=== PATIENT | male | born 1995 | race Caucasian/White ===

== ENCOUNTER 2018-11-06 14:50 | Emergency (ER) | payer MEDICAID, SELFPAY ==
[2018-11-06 14:58] VITALS: BP 159/76; PULSE 62; RESP 16; TEMP 37; O2SAT 96
--- NOTE | 2018-11-06 15:03 | DI.RAD_ITS ---
SYMPTOMS/DIAGNOSIS: RIGHT LATERAL FOOT PAIN S/P BLUNT TRAUMA RIGHT FOOT: No acute fracture or dislocation is identified.
--- NOTE | 2018-11-06 15:04 | W.ED.GENAD ---
Discharge Plan Disposition Patient Disposition: HOME Condition: Improving Discharge Details Chief Complaint: Orthopedic Clinical Impression: Contusion of foot, right Primary Care Provider: None,None ED Provider: Prabhu Valencia Home Meds and New Rx's Prescriptions: No Action No Known Home Meds RF: 0 Discharge Instructions Instructions: Contusion in Adults (ED), Foot Contusion (ED) Additional Instructions: Follow-up with regular doctor if not improving in 5-7 days time. You will like have increased bruising over the next 12-24 hours time. Apply ice to reduce discomfort. Elevate above the level of heart to reduce swelling. Wear a flat soled/hard soled shoe to reduce discomfort Stand Alone Forms: Work Release Medical Decision Making 23-year-old male dropped a large toolbox on his right foot prior to presentation. He had immediate onset of achy pain and swelling. He is otherwise in no acute distress. Referred for x-ray which does not reveal underlying bony injury. He certainly has contusion and likely will have increased bruising. I discussed this course of expected resolution with him. He is stable for discharge to home at this time. HPI General Mode of arrival: ambulatory. Date/Time Provider Initiated Documentation: 11/06/18 14:53. Limitations to Documentation: no limitations. Information obtained by: patient. History of Present Illness 23 year old M presents to the emergency department with the chief complaint of Right foot pain after dropping toolbox on it, described as moderate, Quality is described as aching, and is localized to the right and lower extremity. Patient reports no radiation. Patient started experiencing this minute(s) and it has been constant. No relieving factors improve symptom(s), No exacerbating factors reported . Patient notes no other symptoms.. Patient did receive the following treatments prior to arrival, none Related Data Home Medications Medication Instructions Recorded Confirmed Unknown [No Known Home Meds] 11/06/18 11/06/18 Allergies Allergy/AdvReac Type Severity Reaction Status Date / Time No Known Allergies Allergy Unverified 11/06/18 15:02 General Stated Complaint: Orthopedic SHIMA: 4 Review of Systems Review of Systems No other injury. No numbness or tingling. 6 systems reviewed and otherwise - [facility] Social History Smoking/Tobacco Use Status: Never Exam Narrative Exam Narrative: GEN: awake, alert, oriented 3. Pleasant, well groomed, interactive. HEAD: Normocephalic, atraumatic ENT: Mucous membranes moist, oropharynx unremarkable, External ear exam unremarkable EYES: PERRL, EOMI EXT: Full ROM, right lateral foot swelling, ecchymosis, tenderness. Neuro: Grossly normal neurologic exam, conversant, interactive. Psych: Speech fluent, thoughts congruent, affect normal Course Vital Signs Temperature 37 C 11/06/18 14:58 Pulse 62 11/06/18 14:58 Respiratory Rate 16 11/06/18 14:58 Blood Pressure 159/76 H 11/06/18 14:58 Pulse Oximetry 96 11/06/18 14:58 Temperature 37 C 11/06/18 14:58 Temperature Source Skin 11/06/18 14:58 Pulse 62 11/06/18 14:58 Respiratory Rate 16 11/06/18 14:58 Respiratory Effort Non-Labored 11/06/18 14:58 Blood Pressure 159/76 H 11/06/18 14:58 Blood Pressure Position Sitting 11/06/18 14:58 Pulse Oximetry 96 11/06/18 14:58 Oxygen Delivery Method Room Air 11/06/18 14:58 Oxygen Flow Rate 0 11/06/18 14:58 Pain Level 5 11/06/18 14:58
== END 2018-11-06 16:00 | disposition home or self-care (01) ==
PROVIDERS: Emergency Provider Emergency Medicine
DX: S90.31XA Contusion of right foot, initial encounter (principal); W22.8XXA Striking against or struck by other objects, initial encounter
CPT/HCPCS: 99283; 73630; 99282

== ENCOUNTER 2021-07-21 12:35 | Outpatient (REF) | payer MEDICAID, SELFPAY ==
[2021-07-23 12:44] LABS: COVID-19 RT-PCR UVMMC Result Negative (Negative)
== END 2021-07-21 12:36 | disposition home or self-care (01) ==
LOC: LBN 12:35
PROVIDERS: Visit Provider Physician Assistant
DX: Z20.822 Contact with and (suspected) exposure to COVID-19 (principal)
CPT/HCPCS: U0003

== ENCOUNTER 2023-01-31 09:01 | Emergency (ER) | payer SELFPAY ==
[2023-01-31 09:07] VITALS: BP 132/88; PULSE 114; RESP 20; TEMP 36.9; O2SAT 98
[2023-01-31] MEDS: Ondansetron 4 MG/2 ML VIAL IVP (09:48)
[2023-01-31] MEDS: Acetaminophen 500 MG TAB 1000 MG PO (09:48)
[2023-01-31] MEDS: Lactated Ringers 1,000 ML 2000 ML IV (10:00)
[2023-01-31 10:04] LABS: Abs Immature Grans 0.02 10^3/uL (0.0-0.06); Absolute Basophil Count 0.03 10^3/uL (0.0-0.2); Absolute Lymphocyte Count 0.58 10^3/uL (1.2-3.4); Absolute Monocyte Count 0.65 10^3/uL (0.1-0.8); Absolute Neutrophil Count 6.76 10^3/uL (1.2-6.7); Basophils % 0.4; HCT 43.7 % (40.0-50.0); HGB 15.8 g/dL (13.5-17.5); Immature Grans % 0.2; Lymphocytes % 7.2; MCH 32.9 pg (27.0-33.0); MCHC 36.2 % (32.0-36.0); MCV 91 fL (80-95); Monocytes % 8.1; Neutrophils % 84.1; Platelet Count 222 10^3/uL (130-400); RDW 11.2 % (11.8-14.1); RDW-SD 37.9 fL; WBC 8.04 10^3/uL (4.4-10.8)
[2023-01-31 10:22] LABS: ALT 23 U/L (16-63); AST 34 U/L (15-37); Albumin 4.6 g/dL (3.4-5.0); Alkaline Phosphatase 97 U/L (46-116); Anion Gap 9.3 mmol/L (3-11); BUN 15 mg/dL (7-18); Bilirubin, Total 1.1 mg/dL (0.2-1.0); CO2 28.7 mmol/L (21.0-32.0); CREATININE 1.2 mg/dL (0.70-1.30); Calcium 9.2 mg/dL (8.5-10.1); Chloride 98 mmol/L (98-107); Estimated GFR 83.95 (mL/min/1.73m2); Glucose 105 mg/dL (74-106); Lipase 24 U/L (16-77); Potassium 4.7 mmol/L (3.5-5.1); Sodium 136 mmol/L (136-145); Total Protein 8.5 g/dL (6.4-8.2)
[2023-01-31 11:36] VITALS: TEMP 37
--- NOTE | 2023-01-31 12:02 | ED.GENADUL_ITS ---
Discharge Plan Disposition Patient Disposition: Home Discharge Details Clinical Impression: Acute viral syndrome ED Provider: Alpa Wing Home Meds and New Rx's Prescriptions: New dicyclomine 20 mg tablet 20 mg PO TID PRN (Reason: stomach upset) Qty: 14 0RF Rx Instructions: Take 1 tablet up to 3 times daily as needed for stomach cramps or stomach upset Discontinued prednisone 20 mg tablet 60 mg PO DAILY Qty: 15 0RF Patient Comments: no longer taking 01.31.23 CT Discharge Instructions Instructions: Viral Syndrome (ED) Additional Instructions: Please take Zofran as needed for nausea and vomiting Keep yourself hydrated, Gatorade, water, juice, popsicles May take bland diet as tolerated, bananas, rice, applesauce, toast Please be reevaluated here if fever lasts longer than 5 days You may take ibuprofen and Tylenol for fever control Discharge Data Discharge Date/Time-TO BE ENTERED AT DEPARTURE: 01/31/23 12:20 Medical Decision Making <ZEV Mcghee - Last Filed: 01/31/23 14:44> 26-year-old male, alert, oriented, no meningismus, no petechial rash or lesions, abdomen nontender diagnostic labs are reassuring, received 2 L of IV hydration, able to take p.o. and was able to supply urine prior to leaving the emergency department, unable to supply stool sample, was given stool sample supplies for home Given antiemetics for home, will need close outpatient reassessment Tick panel pending Return precautions reviewed and patient expressed understanding, discharged home ambulatory steady gait Patient was aware that should his fever persist greater than 5 days he must be reevaluated Well-appearing at time of discharge home, reporting symptomatic improvement with improvement in vitals <Blu Curry MD - Last Filed: 02/08/23 21:03> Lab Data Lab results reviewed: Yes I reviewed the patient's lab results. Labs: Laboratory Tests Range/Units 01/31/23 01/31/23 10:00 10:00 WBC (4.4-10.8) 10^3/uL 8.04 RBC (4.36-5.78) 10^6/uL 4.80 Hgb (13.5-17.5) g/dL 15.8 Hct (40.0-50.0) % 43.7 MCV (80-95) fL 91 MCH (27.0-33.0) pg 32.9 MCHC (32.0-36.0) % 36.2 H RDW (11.8-14.1) % 11.2 L Plt Count (130-400) 10^3/uL 222 MPV (8.0-11.0) fL 10.0 Immature Gran % 0.2 Neutrophils % 84.1 Lymphocytes % 7.2 Monocytes % 8.1 Eosinophils % 0.0 Basophils % 0.4 Nucleated RBC % (0.0-0.3) % 0.0 Absolute Neutrophils (1.2-6.7) 10^3/uL 6.76 H Absolute Lymphocytes (1.2-3.4) 10^3/uL 0.58 L Absolute Monocytes (0.1-0.8) 10^3/uL 0.65 Absolute Eosinophils (0.0-0.7) 10^3/uL 0.00 Absolute Basophils (0.0-0.2) 10^3/uL 0.03 Sodium (136-145) mmol/L 136 Potassium (3.5-5.1) mmol/L 4.7 Chloride (98-107) mmol/L 98 Carbon Dioxide (21.0-32.0) mmol/L 28.7 Anion Gap (3-11) mmol/L 9.3 BUN (7-18) mg/dL 15 Creatinine (0.70-1.30) mg/dL 1.2 Est GFR (CKD-EPI 2020) (mL/min/1.73m2) 83.95 Glucose (74-106) mg/dL 105 Calcium (8.5-10.1) mg/dL 9.2 Total Bilirubin (0.2-1.0) mg/dL 1.1 H AST (15-37) U/L 34 ALT (16-63) U/L 23 Alkaline Phosphatase (46-116) U/L 97 Total Protein (6.4-8.2) g/dL 8.5 H Albumin (3.4-5.0) g/dL 4.6 Lipase (16-77) U/L 24 Date: 01/31/23 Time: 12:06 Note: Patient seen, examined, and discussed with ZEV Wing. No signs of focal bacterial infection on exam. We will add COVID test. Tick panel pending. I agree with treatment plan as discussed/documented. HPI <ZEV Mcghee - Last Filed: 01/31/23 14:44> General Date/Time Provider Initiated Documentation: 01/31/23 09:26 . HPI Narrative: This otherwise healthy 27 male presents with nausea vomiting diarrhea headache and body aches intermittently for the past 3 days. Denies any known sick contacts. Works as an global security architect. Had chills all evening reportedly. Denies any blood in vomitus or stool. Denies any recent antibiotic use. Does report he was on prednisone in September for history of poison kam. States has not been able to urinate since last evening. Unable to drink much fluid as he vomits immediately after. Denies regular alcohol use or illicit drug use. Denies matthew st pain or shortness of breath. Denies any cough. Does report some myalgias to his lower extremities. Related Data Home Medications Medication Instructions Recorded Confirmed dicyclomine 20 mg tablet 20 mg PO TID PRN stomach upset #14 01/31/23 02/02/23 tabs Previous Rx's Medication Instructions Recorded dicyclomine 20 mg tablet 20 mg PO TID PRN stomach upset #14 01/31/23 tabs Allergies Allergy/AdvReac Type Severity Reaction Status Date / Time No Known Allergies Allergy Verified 02/02/23 09:10 General Stated Complaint: Nausea/Vomit/Diar SHIMA: 3 PFSH <ZEV Mcghee - Last Filed: 01/31/23 14:44> All Active Problems (Updated 02/02/23 @ 11:13 by Blu Curry MD) Acute viral syndrome (Acute) Bloody diarrhea (Acute) Social History Smoking/Tobacco Use Status: Current-Occasional Tobacco Type: cigarettes Smoking risk assessment performed?: Yes Alcohol Intake: current Alcohol Intake frequency: holidays/special occasions only Alcohol type: beer Drug use: Never Substance use type: does not use Housing: house Do you feel safe at home: Yes Do you feel safe in your relationship?: Yes Course <ZEV Mcghee - Last Filed: 01/31/23 14:44> Vital Signs Vital signs: Vital Signs Temperature 36.9 C 01/31/23 09:07 Pulse 114 H 01/31/23 09:07 Respiratory Rate 20 01/31/23 09:07 Blood Pressure 132/88 01/31/23 09:07 Pulse Oximetry 98 01/31/23 09:07 Temperature 37.0 C 01/31/23 11:36 Temperature Source Oral 01/31/23 11:36 Pulse 114 H 01/31/23 09:07 Respiratory Rate 20 01/31/23 09:07 Respiratory Effort Normal 01/31/23 09:09 Blood Pressure 132/88 01/31/23 09:07 Blood Pressure Position Sitting 01/31/23 09:07 Pulse Oximetry 98 01/31/23 09:07 Oxygen Delivery Method Room Air 01/31/23 09:07 Oxygen Flow Rate 0 01/31/23 09:07 Pain Level 0 01/31/23 09:07 Lab/Test Results Lab/Test Results: Laboratory Tests Range/Units 01/31/23 01/31/23 10:00 10:00 WBC (4.4-10.8) 10^3/uL 8.04 RBC (4.36-5.78) 10^6/uL 4.80 Hgb (13.5-17.5) g/dL 15.8 Hct (40.0-50.0) % 43.7 MCV (80-95) fL 91 MCH (27.0-33.0) pg 32.9 MCHC (32.0-36.0) % 36.2 H RDW (11.8-14.1) % 11.2 L Plt Count (130-400) 10^3/uL 222 MPV (8.0-11.0) fL 10.0 Immature Gran % 0.2 Neutrophils % 84.1 Lymphocytes % 7.2 Monocytes % 8.1 Eosinophils % 0.0 Basophils % 0.4 Nucleated RBC % (0.0-0.3) % 0.0 Absolute Neutrophils (1.2-6.7) 10^3/uL 6.76 H Absolute Lymphocytes (1.2-3.4) 10^3/uL 0.58 L Absolute Monocytes (0.1-0.8) 10^3/uL 0.65 Absolute Eosinophils (0.0-0.7) 10^3/uL 0.00 Absolute Basophils (0.0-0.2) 10^3/uL 0.03 Sodium (136-145) mmol/L 136 Potassium (3.5-5.1) mmol/L 4.7 Chloride (98-107) mmol/L 98 Carbon Dioxide (21.0-32.0) mmol/L 28.7 Anion Gap (3-11) mmol/L 9.3 BUN (7-18) mg/dL 15 Creatinine (0.70-1.30) mg/dL 1.2 Est GFR (CKD-EPI 2020) (mL/min/1.73m2) 83.95 Glucose (74-106) mg/dL 105 Calcium (8.5-10.1) mg/dL 9.2 Total Bilirubin (0.2-1.0) mg/dL 1.1 H AST (15-37) U/L 34 ALT (16-63) U/L 23 Alkaline Phosphatase (46-116) U/L 97 Total Protein (6.4-8.2) g/dL 8.5 H Albumin (3.4-5.0) g/dL 4.6 Lipase (16-77) U/L 24 PAWSS <ZEV Mcghee - Last Filed: 01/31/23 14:44> Have you Been Recently Intoxicated or Drunk Within the Last 30 days?: No Have you Ever Experienced Previous Episodes of Alcohol Withdrawal?: No Have you ever Experienced Withdrawal Seizures?: No Have you ever Experienced Delirium Tremens(DT)s?: No Have you ever undergone Alcohol Rehabilitation Treatment (i.e, inpt ot outpatient treatment programs)?: No Have you ever Experienced Blackouts?: No Have you ever Combined Alcohol with other Downers within the last 90 days?: No Have you ever Combined Alcohol with any other Substance of Abuse during the last 90 days?: No Result: 0 <Blu Curry MD - Last Filed: 02/08/23 21:03> Result: 0
[2023-01-31 12:10] VITALS: BP 129/61; PULSE 84; RESP 18; TEMP 37.6; O2SAT 96
[2023-01-31 12:15] LABS: Source Nasal/Nares
[2023-01-31 12:18] VITALS: BP 129/61; PULSE 84; RESP 18; TEMP 37.6; O2SAT 96
[2023-01-31 12:27] LABS: Bilirubin Negative (Negative); Blood Negative (Negative); Clarity Clear (Clear); Glucose Negative (Negative); Ketones Negative (Negative); Leukocyte Esterase Negative (Negative); Nitrite Negative (Negative); Urobilinogen 0.2 mg/dL (Up to 0.2); pH 6.5 (5-8)
[2023-01-31 13:01] LABS: COVID-19 PCR Negative (Negative)
[2023-01-31 23:24] LABS: C Diff PCR Negative (Negative)
--- NOTE | 2023-02-01 09:52 | NUR.NOTE ---
Nursing Note: per Lab, the lyme was too hemolyzed to perform the test. It was cancelled per [facility].
[2023-02-02 12:36] LABS: Campylobacter PCR Negative (Negative); Shiga Toxin PCR Negative (Negative); Shigella/Enteroinvasive Ecoli Negative (Negative)
[2023-02-02 13:04] LABS: Salmonella PCR Positive (Negative)
[2023-02-03 17:19] LABS: Anaplasma phagocytophilum Negative (Negative); B. miyamotoi PCR Negative (Negative); Babesia divergens/MO-1 Negative (Negative); Babesia duncani Negative (Negative); Babesia microti Negative (Negative); Ehrlichia chaffeensis Negative (Negative); Ehrlichia ewingii/canis Negative (Negative); Ehrlichia muris eauclairensis Negative (Negative)
== END 2023-01-31 12:20 | disposition home or self-care (01) ==
PROVIDERS: Student in an Organized Health Care Education/Training Program; Emergency Provider Physician Assistant
DX: B34.9 Viral infection, unspecified (principal); R11.2 Nausea with vomiting, unspecified; R19.7 Diarrhea, unspecified; R51.9 Headache, unspecified
CPT/HCPCS: 80053; 83690; 87493; 87505; 87635; 87798; 96361; 96374; 99284; 81003; 85025; 86618; J2405

== ENCOUNTER 2023-02-02 09:05 | Emergency (ER) | payer SELFPAY ==
[2023-02-02 09:06] VITALS: BP 139/84; PULSE 74; RESP 16; TEMP 36.6; O2SAT 99
--- NOTE | 2023-02-02 09:48 | DI.CT_ITS ---
Exam(s) CT ABDOMEN PELVIS W EXAM: CT ABDOMEN PELVIS W CLINICAL HISTORY: LLQ abdominal pain, bloody stool. TECHNIQUE: Imaging Protocol: Axial computed tomography images with coronal and sagittal reformatted images were created and reviewed CONTRAST MATERIAL: Intravenous: Omnipaque 350 Contrast volume:100 ml Oral: no COMPARISON: No exams were available for comparison FINDINGS: ABDOMEN: Lung Bases: Normal where visualized. Liver: Normal density. No measurable mass. Gallbladder and biliary tract: No radiodense calculus or dilation. Pancreas: Normal density, no abnormal calcifications or inflammatory process. Spleen: Normal. Kidneys: Normal size, contour and axis. No radiodense stones or obstructive uropathy. No suspicious m asses seen. Adrenal glands: No masses seen. Abdominal Aorta: Abdominal portion non-dilated. Soft tissues: Unremarkable. PELVIS: Bladder:No calculi.No focal mass. Bowel: Diffuse wall thickening from the descending colon through the rectum. No obstruction. No sm all bowel dilatation or wall thickening.. Appendix normal. Peritoneal cavity: A small amount free fluid is seen low in the pelvis. No free air. Bones: Unremarkable for age. Reproductive organs: Within normal limits. Lymph nodes: Unremarkable. Impression: Findings consistent with colitis of the descending colon through rectum. Findings called to Dr. Curry of the emergency department. RADIATION DOSE DELIVERED: 715.35mGy.cm Total DLP DATA REPOSITORY: All CT scans at this facility are submitted to the National Radiology Data Registry (NRDR) Dose Index Registry (DIR) with the [employer] ([employer]). RADIATION OPTIMIZATION: All CT scans at this facility use at least one of these dose optimization te chniques: automated exposure control; mA and/or kV adjustment per patient size (includes targeted exa ms where dose is matched to clinical indication); or iterative reconstruction.
--- NOTE | 2023-02-02 09:50 | ED.GENADUL_ITS ---
Discharge Plan Disposition Patient Disposition: Home Condition: Stable Discharge Details Clinical Impression: Bloody diarrhea Primary Care Provider: None,None ED Provider: Blu Curry Home Meds and New Rx's Prescriptions: New azithromycin 500 mg tablet 500 mg PO DAILY 2 Days Qty: 2 0RF Rx Instructions: start 02/02/23 Continued dicyclomine 20 mg tablet 20 mg PO TID PRN (Reason: stomach upset) Qty: 14 0RF Rx Instructions: Take 1 tablet up to 3 times daily as needed for stomach cramps or stomach upset Discontinued ondansetron 4 mg tablet,disintegrating 4 mg PO Q8H Qty: 10 0RF Discharge Instructions Instructions: Infectious Colitis (ED) Additional Instructions: Stool cultures are still pending at this time. Be sure buddy discuss these with your doctor. Please contact your primary care physician to arrange follow-up. Return to the ER immediately for any worsening or new concerning symptoms. Medical Decision Making [id number]- 27-year-old male here with loose stool over the past 5 days, now with dark blood, intermittent moderate abdominal cramping and focal tenderness in his left lower quadrant. Patient was seen here 2 days ago with acute febrile illness with myalgias and thought to have acute viral illness. Stool cultures were obtained and not yet resulted. Concern for likely infectious diarrhea. Given focal tenderness, consider acute diverticulitis with concern for potential perforation given systemic symptoms. Plan to obtain CT of the abdomen pelvis to assess for acute surgical pathology. 1110 --CT of the abdomen pelvis was interpreted by radiology: Findings consistent with? colitis of the descending colon through rectum. Given bleeding, plan to initiate treatment with azithromycin 500 mg x 3 days. Labs reviewed and nondiagnostic. Usual customary discharge instructions reviewed with the patient. Medical Records Medical records reviewed: Yes I reviewed the patient's medical records. HPI General Mode of arrival: ambulatory . Date/Time Provider Initiated Documentation: 02/02/23 09:15 . Limitations to Documentation: no limitations . Information obtained by: patient . HPI Narrative: 27-year-old male was seen here in the emergency department on 01/31/2023 for fever, myalgias and nausea vomiting with loose stool. Work-up was nondiagnostic. Patient was thought to have acute viral illness. He notes since discharge she has had no recurrent fever. His myalgias have resolved. He continues to have intermittent abdominal pain that is now focal in his left lower quadrant. He also notes dark blood in his diarrhea. Nausea and vomiting resolved. Related Data Home Medications Medication Instructions Recorded Confirmed dicyclomine 20 mg tablet 20 mg PO TID PRN stomach upset #14 01/31/23 02/02/23 tabs azithromycin 500 mg tablet 500 mg PO DAILY 2 days #2 tabs 02/02/23 Previous Rx's Medication Instructions Recorded dicyclomine 20 mg tablet 20 mg PO TID PRN stomach upset #14 01/31/23 tabs azithromycin 500 mg tablet 500 mg PO DAILY 2 days #2 tabs 02/02/23 Allergies Allergy/AdvReac Type Severity Reaction Status Date / Time No Known Allergies Allergy Verified 02/02/23 09:10 General Stated Complaint: Recheck SHIMA: 3 Review of Systems All systems reviewed & are unremarkable except as noted in HPI and below Constitutional Constitutional: Denies body ache(s) and Denies fever(s) Gastrointestinal Gastrointestinal: Reports as per HPI PFSH All Active Problems (Updated 02/02/23 @ 11:13 by Blu Curry MD) Acute viral syndrome (Acute) Bloody diarrhea (Acute) Social History Smoking/Tobacco Use Status: Current-Occasional Tobacco Type: cigarettes Smoking risk assessment performed?: Yes Alcohol Intake: current Alcohol Intake frequency: holidays/special occasions only Alcohol type: beer Drug use: Never Substance use type: does not use Housing: house Do you feel safe at home: Yes Do you feel safe in your relationship?: Yes Exam Const General: cooperative and no acute distress HENMT Mouth: moist mucous membranes Eyes Conjunctivae: normal conjunctivae Sclera: normal sclerae Neck Neck: trachea midline and supple Resp Auscultation: clear to auscultation bilaterally, no rales, no rhonchi and no wheezes Cardio Rate: regular rate and not tachycardic Rhythm: regular rhythm GI Inspection: non-distended Palpation: soft, not firm, no guarding, no masses, not rigid and tender in the LLQ Skin General skin exam: no rashes or lesions noted Neuro General: patient alert, patient awake, patient oriented x3 and tone normal Extrem General: no edema Course Vital Signs Vital signs: Vital Signs Temperature 36.6 C 02/02/23 09:06 Pulse 74 02/02/23 09:06 Respiratory Rate 16 02/02/23 09:06 Blood Pressure 139/84 02/02/23 09:06 Pulse Oximetry 99 02/02/23 09:06 Temperature 36.6 C 02/02/23 09:06 Temperature Source Skin 02/02/23 09:06 Pulse 74 02/02/23 09:06 Respiratory Rate 16 02/02/23 09:06 Blood Pressure 139/84 02/02/23 09:06 Blood Pressure Position Supine 02/02/23 09:06 Pulse Oximetry 99 02/02/23 09:06 Oxygen Delivery Method Room Air 02/02/23 09:06 Oxygen Flow Rate 0 02/02/23 09:06 Pain Level 8 02/02/23 09:06
[2023-02-02 10:19] LABS: Abs Immature Grans 0.01 10^3/uL (0.0-0.06); Absolute Basophil Count 0.03 10^3/uL (0.0-0.2); Absolute Eosinophil Count 0.05 10^3/uL (0.0-0.7); Absolute Lymphocyte Count 1.37 10^3/uL (1.2-3.4); Absolute Monocyte Count 0.77 10^3/uL (0.1-0.8); Absolute Neutrophil Count 2.84 10^3/uL (1.2-6.7); Basophils % 0.6; HCT 42.4 % (40.0-50.0); HGB 15.1 g/dL (13.5-17.5); Immature Grans % 0.2; MCH 32.3 pg (27.0-33.0); MCHC 35.6 % (32.0-36.0); MCV 91 fL (80-95); MPV 9.8 fL (8.0-11.0); Monocytes % 15.2; Platelet Count 205 10^3/uL (130-400); RBC 4.67 10^6/uL (4.36-5.78); RDW 11.3 % (11.8-14.1); RDW-SD 37.6 fL; WBC 5.07 10^3/uL (4.4-10.8)
[2023-02-02 10:43] LABS: ALT 19 U/L (16-63); AST 21 U/L (15-37); Albumin 4.2 g/dL (3.4-5.0); Alkaline Phosphatase 83 U/L (46-116); Anion Gap 8.4 mmol/L (3-11); BUN 5 mg/dL (7-18); Bilirubin, Total 0.7 mg/dL (0.2-1.0); CO2 31.6 mmol/L (21.0-32.0); CREATININE 0.9 mg/dL (0.70-1.30); Chloride 100 mmol/L (98-107); Estimated GFR 118.57 (mL/min/1.73m2); Glucose 112 mg/dL (74-106); Lipase 30 U/L (16-77); Potassium 4.1 mmol/L (3.5-5.1); Sodium 140 mmol/L (136-145); Total Protein 7.4 g/dL (6.4-8.2)
[2023-02-02] MEDS: Normal Saline - Diluent 50 ML VIAL IJ (10:48)
[2023-02-02] MEDS: Normal Saline Flush 10 ML SYR IVP (10:48)
[2023-02-02] MEDS: Omnipaque 350 MG/ML 500 ML BTL-Imaging package IJ (10:50)
[2023-02-02] MEDS: Azithromycin 250 MG TAB 500 MG PO (11:21)
[2023-02-02 11:23] VITALS: PULSE 92; RESP 18; TEMP 36.9; O2SAT 99
== END 2023-02-02 11:27 | disposition home or self-care (01) ==
PROVIDERS: Emergency Provider Student in an Organized Health Care Education/Training Program
DX: A02.9 Salmonella infection, unspecified (principal); R19.7 Diarrhea, unspecified
CPT/HCPCS: 80053; 83690; 99285; 74177; 85025; 99284